=== PATIENT | female | born 1950 | race Caucasian/White ===

== ENCOUNTER → 2019-11-26 | Outpatient (CLI) | payer OTHER ==
[~2019-11-26] MED LIST: AMOCLA875 PO; BACL20; BUPR150ER; CEPH500 PO; CITA20 PO; CYCL10 PO; DULO30 PO; ESCI20; ESTMEDA PO; HYDACE5 PO; HYDHCL25 PO; LEVSOD100; LEVSOD125; LOVA20; LYRICA PO; NAPR375 PO; Norco 5-325 Ta1 EACH PO; OMEPRAZOLE MAGN20 MG PO; OXYACE5T PO; PROG100 PO; PROM25 PO; RXOXYACE PO; Robaxin500 MG PO; SULTRIDS PO; TRAZ100 PO; Trazodone HCl300 MG PO; Zofran8 MG PO; [UNRECOGNIZED DRUG - REMARK]
== END | disposition home or self-care (01) ==
LOC: LAB 17:09 → LAB SHORT 17:09
DX: T14.8XXA Other injury of unspecified body region, initial encounter (principal); L08.9 Local infection of the skin and subcutaneous tissue, unspecified
CPT/HCPCS: 87070; 87077; 87147; 87186; 87205

== ENCOUNTER 2022-09-10 09:20 | Day surgery (SDC) | payer OTHER ==
[~2022-09-10] VITALS: Ht 165.1 cm; Wt 69.1 kg
[2022-09-10] MEDS ORDERED: BACL10 (09:40)
[2022-09-10] MEDS ORDERED: ATOR10 (09:40)
[2022-09-10] MEDS ORDERED: Flonase 0.05% N16 GM (09:40)
[2022-09-10] MEDS ORDERED: DOC250 (09:40)
== END 2022-09-10 11:55 | disposition home or self-care (01) ==
LOC: ORSCSDS 09:20
DX: R19.5 Other fecal abnormalities (principal); D12.5 Benign neoplasm of sigmoid colon; D12.2 Benign neoplasm of ascending colon; D12.0 Benign neoplasm of cecum; D12.3 Benign neoplasm of transverse colon; K57.30 Diverticulosis of large intestine without perforation or abscess without bleeding; K21.9 Gastro-esophageal reflux disease without esophagitis; E78.5 Hyperlipidemia, unspecified; K59.00 Constipation, unspecified; M79.7 Fibromyalgia; Z87.891 Personal history of nicotine dependence; Z79.899 Other long term (current) drug therapy
CPT/HCPCS: 88305; J2704; J7120

== ENCOUNTER 2024-11-08 14:40 | Emergency (ER) | payer OTHER ==
[~2024-11-08] VITALS: Ht 162.6 cm; Wt 59.0 kg
[~2024-11-08 14:40] MED LIST changes: +ATOR10; +BACL10; +DOC250; +Flonase 0.05% N16 GM
[2024-11-08 15:30] LABS: BASOPHILS ABSOLUTE AUTO 0.05 K/mm3 (0.00-0.23); BASOPHILS PERCENT AUTO 1 % (0-2); EOSINOPHILS ABSOLUTE AUTO 0.09 K/mm3 (0.00-0.68); EOSINOPHILS PERCENT AUTO 2 % (0-6); Hematocrit 39.4 % (33.0-51.0); Hemoglobin 13.2 g/dL (11.5-16.0); IMMATURE GRAN ABSOLUTE AUTO 0.02 K/mm3 (0.00-0.10); IMMATURE GRAN PERCENT AUTO 0 % (0-1); LYMPHOCYTES ABSOLUTE AUTO 1.56 K/mm3 (0.84-5.20); LYMPHOCYTES PERCENT AUTO 28 % (21-46); MONOCYTES ABSOLUTE AUTO 0.22 K/mm3 (0.16-1.47); MONOCYTES PERCENT AUTO 4 % (4-13); Mean Corpuscular HGB 30.6 pg (26.0-34.0); Mean Corpuscular HGB Conc 33.5 g/dL (31.5-36.5); Mean Corpuscular Volume 91 fL (80-100); Mean Platelet Volume 9.1 fL (9.1-12.4); NEUTROPHILS ABSOLUTE AUTO 3.65 K/mm3 (1.96-9.15); NEUTROPHILS PERCENT AUTO 65 % (41-73); Platelet Count 228 K/mm3 (150-400); RDW Coefficient Variation 11.7 % (11.7-14.2); RDW Standard Deviation 39.3 fL (35.1-46.3); Red Blood Cell Count 4.32 M/mm3 (3.80-5.20); White Blood Cell Count 5.59 K/mm3 (4.00-11.30)
[2024-11-08 15:48] LABS: Bun/Creatinine Ratio 16.6 (12.0-20.0); Calcium, Blood 9.5 mg/dL (8.5-10.1); Creatinine, Blood 0.9 mg/dL (0.40-1.00); Potassium, Blood 3.9 mmol/L (3.5-5.5)
[2024-11-08 16:10] LABS: Influenza A, PCR NEGATIVE (NEGATIVE); Influenza B, PCR NEGATIVE (NEGATIVE); Resp Syncytial Virus, PCR NEGATIVE (NEGATIVE); SARS-Cov-2 (COVID-19) PCR, MMC NEGATIVE (NEGATIVE)
[2024-11-08] MEDS ORDERED: Lidocaine 4% 1 Patch TOP ONE (19:15)
[2024-11-08] MEDS ORDERED: Morphine Sulfate 4 MG/1 ML Injection IV ONE (19:15)
[2024-11-08] MEDS ORDERED: Acetaminophen 500 MG Tab PO ONE (19:15)
[2024-11-08] MEDS ORDERED: Cyclobenzaprine HCl 10 MG Tab PO ONE (19:15)
[2024-11-08] MEDS ORDERED: LIDO700A20 TOP (20:13)
[2024-11-08] MEDS ORDERED: CYCL10 PO (20:13)
[2024-11-08] MEDS ORDERED: RX Prepack 6 Tabs Oxycodone 5mg UD ONE (20:20)
[2024-11-08 20:39] VITALS: BP 132/73
== END 2024-11-08 20:40 | disposition home or self-care (01) ==
LOC: ER 14:40
PROVIDERS: Student in an Organized Health Care Education/Training Program
DX: S32.059A Unspecified fracture of fifth lumbar vertebra, initial encounter for closed fracture (principal); K21.9 Gastro-esophageal reflux disease without esophagitis; Z87.891 Personal history of nicotine dependence; W18.30XA Fall on same level, unspecified, initial encounter
CPT/HCPCS: 0241U; 70450; 72131; 80048; 85025; 93005; 93010; 96374; 99284-25; A9270; J2270